=== PATIENT | female | born 1950 | race Caucasian/White ===

== ENCOUNTER → 2017-06-26 | Outpatient (CLI) | payer OTHER ==
[~2017-06-26] MED LIST: ANTIVERT25 MG PO; CEPHALEXIN 500500 M3 PO; DOXYCYCLINE 10100 MG PO; MEDROLDOSEPACK PO; NORCO 5-325 TA1 EACH PO; ZOFRAN ODT4 MG PO
[2017-06-26 11:21] LABS: ABSOLUTE EOSINOPHILS 0.2 thou/uL (0.0-0.7); ABSOLUTE LYMPHOCYTES 1.8 thou/uL (0.8-5.3); ABSOLUTE MONOCYTES 0.3 thou/uL (0.0-1.2); ABSOLUTE NEUTROPHILS 2.7 thou/uL (1.6-8.1); BASOPHILS 0.8 %; EOSINOPHILS 4.4 %; HEMATOCRIT 41.5 % (37.0-47.0); HEMOGLOBIN 14.1 gm/dL (12.0-15.0); LYMPHOCYTES 35.5 %; MCH 31.1 pg (26.0-34.0); MCHC 34.1 g/dL (28.0-37.0); MCV 91.5 fL (80.0-100.0); MONOCYTES 5.3 %; MPV 6.5 fl. (7.2-11.1); NUCLEATED RBCS 0 /100WBC; PLATELET COUNT* 229 thou/uL (150-400); RBC 4.54 mil/uL (4.20-5.00); RDW-CV 13.3 % (10.5-14.5); WBC 5.1 thou/uL (4.0-11.0)
[2017-06-26 11:35] LABS: ALBUMIN 3.8 g/dL (3.4-5.0); ALKALINE PHOSPHATASE 86 U/L (46-116); ANION GAP 8 mmol/L (7-16); BUN 14 mg/dL (7-18); CHLORIDE 101 mmol/L (98-107); CHOLESTEROL 212 mg/dL (<200); CO2 31 mmol/L (21-32); CREATININE 0.7 mg/dL (0.6-1.3); GLUCOSE 103 mg/dL (70-99); HDL CHOLESTEROL 49 mg/dL (>40); LDL CHOLESTEROL 137 mg/dL (<100); POTASSIUM 4.1 mmol/L (3.5-5.1); SGOT 21 U/L (15-37); SGPT 28 U/L (30-65); SODIUM 140 mmol/L (136-145); TC:HDL 4.3 Ratio (Not establshd); TOTAL BILIRUBIN 0.6 mg/dL (<0.1-1.0); TOTAL PROTEIN 7.6 g/dL (6.4-8.2); TRIGLYCERIDE 132 mg/dL (<150); VLDL 26 mg/dL (<40)
[2017-06-26 11:36] LABS: SERUM ASSESSMENT Clear
[2017-06-27 03:09] LABS: GLYCOHEMOGLOBIN (HGB A1C) 4.8 % (4.8-5.6)
== END ==
LOC: M.LAB 10:58
PROVIDERS: Family Medicine
DX: Z00.01 Encounter for general adult medical examination with abnormal findings (principal); E78.5 Hyperlipidemia, unspecified; R79.89 Other specified abnormal findings of blood chemistry

== ENCOUNTER → 2018-01-19 | Outpatient (CLI) | payer OTHER, MEDICARE | LOC: M.MRI 01-05 14:40 | DX: M25.511 Pain in right shoulder (principal); M25.411 Effusion, right shoulder; M19.011 Primary osteoarthritis, right shoulder; M75.51 Bursitis of right shoulder ==

== ENCOUNTER → 2018-02-01 | Outpatient (CLI) | payer OTHER, MEDICARE | LOC: M.LAB 15:35 | PROVIDERS: Nurse Practitioner Family | DX: M25.50 Pain in unspecified joint (principal); M79.601 Pain in right arm; R53.83 Other fatigue ==

== ENCOUNTER → 2018-07-09 | Outpatient (CLI) | payer OTHER, MEDICARE ==
[2018-07-09 12:29] LABS: ABSOLUTE EOSINOPHILS 0.2 thou/uL (0.0-0.7); ABSOLUTE LYMPHOCYTES 1.7 thou/uL (0.8-5.3); ABSOLUTE MONOCYTES 0.3 thou/uL (0.0-1.2); ABSOLUTE NEUTROPHILS 2.5 thou/uL (1.6-8.1); BASOPHILS 1.1 %; HEMATOCRIT 38.2 % (37.0-47.0); HEMOGLOBIN 13.2 gm/dL (12.0-15.0); LYMPHOCYTES 35.5 %; MCH 31.2 pg (26.0-34.0); MCHC 34.5 g/dL (28.0-37.0); MCV 90.7 fL (80.0-100.0); MPV 6.3 fl. (7.2-11.1); NUCLEATED RBCS 0 /100WBC; PLATELET COUNT* 213 thou/uL (150-400); POLYS 53.4 %; RBC 4.22 mil/uL (4.20-5.00); RDW-CV 13.2 % (10.5-14.5); WBC 4.7 thou/uL (4.0-11.0)
[2018-07-09 12:38] LABS: ALBUMIN 3.3 g/dL (3.4-5.0); ALKALINE PHOSPHATASE 65 U/L (46-116); ANION GAP 5 mmol/L (7-16); BUN 18 mg/dL (7-18); CALCIUM 8.2 mg/dL (8.5-10.1); CHLORIDE 103 mmol/L (98-107); CHOLESTEROL 214 mg/dL (<200); CO2 29 mmol/L (21-32); CREATININE 0.7 mg/dL (0.6-1.3); GLUCOSE 88 mg/dL (70-99); HDL CHOLESTEROL 51 mg/dL (>40); LDL CHOLESTEROL 132 mg/dL (<100); POTASSIUM 3.9 mmol/L (3.5-5.1); SGOT 18 U/L (15-37); SGPT 25 U/L (30-65); SODIUM 137 mmol/L (136-145); TC:HDL 4.2 Ratio (Not establshd); TOTAL BILIRUBIN 0.4 mg/dL (<0.1-1.0); TOTAL PROTEIN 6.6 g/dL (6.4-8.2); TRIGLYCERIDE 158 mg/dL (<150); VLDL 32 mg/dL (<40)
[2018-07-09 12:41] LABS: SERUM ASSESSMENT Clear
[2018-07-10 02:06] LABS: GLYCOHEMOGLOBIN (HGB A1C) 5.5 % (4.8-5.6)
== END ==
LOC: M.LAB 12:05
PROVIDERS: Nurse Practitioner Family
DX: Z12.31 Encounter for screening mammogram for malignant neoplasm of breast (principal); E78.2 Mixed hyperlipidemia; M85.89 Other specified disorders of bone density and structure, multiple sites; M19.011 Primary osteoarthritis, right shoulder; M19.012 Primary osteoarthritis, left shoulder; M25.712 Osteophyte, left shoulder; M25.711 Osteophyte, right shoulder; Z00.01 Encounter for general adult medical examination with abnormal findings

== ENCOUNTER → 2018-08-01 | Outpatient (CLI) | payer OTHER, MEDICARE | LOC: M.MRI 16:24 | DX: M75.102 Unspecified rotator cuff tear or rupture of left shoulder, not specified as traumatic (principal); M24.112 Other articular cartilage disorders, left shoulder; M19.012 Primary osteoarthritis, left shoulder ==

== ENCOUNTER 2018-12-20 08:12 | Emergency (ER) | payer OTHER, MEDICARE ==
[~2018-12-20] VITALS: Ht 149.9 cm; Wt 73.9 kg
[2018-12-20] MEDS ORDERED: CALCIUM + D SO1 EACH PO (08:24)
[2018-12-20] MEDS ORDERED: VITAMIN B-1100 M1 PO (08:24)
[2018-12-20] MEDS ORDERED: PERCOCET PO (08:25)
[2018-12-20] MEDS ORDERED: GENTAK5 ML INTRAOCULR (08:50)
[2018-12-20 09:01] VITALS: BP 148/74
== END 2018-12-20 09:01 | disposition home or self-care (01) ==
LOC: M.ERS 08:12
DX: Z77.098 Contact with and (suspected) exposure to other hazardous, chiefly nonmedicinal, chemicals (principal); Z98.890 Other specified postprocedural states; Z88.6 Allergy status to analgesic agent

== ENCOUNTER → 2019-04-03 | Outpatient (CLI) | payer OTHER, MEDICARE ==
[~2019-04-03] MED LIST changes: +CALCIUM + D SO1 EACH PO; +GENTAK5 ML INTRAOCULR; +PERCOCET PO; +VITAMIN B-1100 M1 PO
[2019-04-03 10:01] LABS: CHOLESTEROL 211 mg/dL (<200); HDL CHOLESTEROL 47 mg/dL (>40); LDL CHOLESTEROL 130 mg/dL (<100); TC:HDL 4.5 Ratio (Not establshd); TRIGLYCERIDE 174 mg/dL (<150); VLDL 35 mg/dL (<40)
[2019-04-03 10:02] LABS: SERUM ASSESSMENT Clear
== END ==
LOC: M.LAB 09:06
PROVIDERS: Nurse Practitioner Family
DX: E78.9 Disorder of lipoprotein metabolism, unspecified (principal)

== ENCOUNTER → 2019-04-10 | Outpatient (CLI) | payer OTHER, MEDICARE | LOC: M.MRI 16:56 | DX: M75.101 Unspecified rotator cuff tear or rupture of right shoulder, not specified as traumatic (principal); M19.011 Primary osteoarthritis, right shoulder; G89.29 Other chronic pain ==

== ENCOUNTER → 2019-07-12 | Outpatient (CLI) | payer OTHER, MEDICARE | LOC: M.MRI 15:25 | DX: S83.242A Other tear of medial meniscus, current injury, left knee, initial encounter (principal); S83.282A Other tear of lateral meniscus, current injury, left knee, initial encounter; M17.12 Unilateral primary osteoarthritis, left knee; M71.22 Synovial cyst of popliteal space [Baker], left knee; X58.XXXA Exposure to other specified factors, initial encounter; Y93.89 Activity, other specified; Y92.89 Other specified places as the place of occurrence of the external cause; Y99.8 Other external cause status ==

== ENCOUNTER → 2019-08-21 | Day surgery (SDC) | payer OTHER, MEDICARE ==
[~2019-08-21] MED LIST changes: +LIPITOR40 MG PO; +SERTRALINE HCL50 MG PO
--- NOTE | ~2019-08-21 | OP ---
[address] [address] OPERATIVE REPORT Name: ISMAEL ROSENTHAL Room: [facility]#: [id number] Admission: 08/21/19 Attend Phys: Keron Crabtree II Discharge: Date of : 52 Report #: [id number] THIS REPORT FOR: //name// cc: Gabriel Carrero Russell J. DO ~ THIS REPORT FOR: //name// CC: Keron Carrero DATE OF SERVICE: 08/21/2019 PREOPERATIVE DIAGNOSIS: Left knee medial meniscus tear. POSTOPERATIVE DIAGNOSES: 1. Left knee medial meniscus tear. 2. Grade 3 chondromalacia, patellofemoral groove. 3. Lateral meniscus tear. PROCEDURES PERFORMED: 1. Left knee arthroscopic surgery with partial medial and lateral meniscectomy. 2. Abrasion chondroplasty, patellofemoral groove down to bleeding bone. SURGEON: Keron Crabtree II, DO. CLIENT ENGAGEMENT SPECIALIST: CEZAR Chris. ANESTHESIA: Per operative record. ESTIMATED BLOOD LOSS: Minimal. ANTIBIOTICS: Per operative record. DRAINS: None. COMPLICATIONS: None. CONDITION OF THE PATIENT: Stable to recovery room. DESCRIPTION OF PROCEDURE: The patient was taken to the operative suite and placed supine on the operating table, given appropriate anesthesia. The patient's affected lower extremity was sterilely prepped and draped with a well-padded knee arthroscopic greenwood. Surgery begun by medial and lateral portal incisions. The arthroscope was advanced in the joint. There was found to be grade 3 chondromalacia patellofemoral groove. Utilizing a shaver, an abrasion chondroplasty was performed down to bleeding bone and then smoothed [place] [id number] OPERATIVE REPORT Name: ISMAEL ROSENTHAL Room: [facility]#: [id number] Admission: 08/21/19 Attend Phys: Keron Crabtree II Discharge: Date of : 52 Report #: [id number] using Coblation wand in appropriate fashion. The medial meniscus was shown to have a tear to the medial margin extending around to the posterior aspect. The shaver was utilized to perform partial meniscectomy and resection with baskets and shaver was performed to resect the torn flap along the medial meniscus and this was then smoothed utilizing Coblation wand. Lateral meniscus was probed and shown to have tear to the anterior and lateral margin extending around to the anterior aspect. This was debrided utilizing a shaver with partial lateral meniscectomy performed and baskets were utilized to resect the torn flap along the lateral meniscus. This was then smoothed using Coblation wand. ACL was torn and the stump was resected. PCL was intact. There was also noted to be a small cyst on the posterior aspect, which was debrided with the shaver. Final irrigation was performed of the knee, it was drained of arthroscopic fluid, closed with 4-0 nylon in simple fashion. Dermabond and sterile dressing applied. The patient transported to recovery room in stable condition. Counts were correct throughout the procedure. By: [id number] Crabtree II, DO /nt
[2019-08-21 08:57] LABS: HEMATOCRIT 38.3 % (37.0-47.0); HEMOGLOBIN 13.2 gm/dL (12.0-15.0); MCH 31.4 pg (26.0-34.0); MCHC 34.4 g/dL (28.0-37.0); MCV 91.2 fL (80.0-100.0); MPV 6.3 fl. (7.2-11.1); RBC 4.19 mil/uL (4.20-5.00); RDW-CV 14.2 % (10.5-14.5); WBC 4.6 thou/uL (4.0-11.0)
[2019-08-21 09:05] LABS: CALCIUM 8.5 mg/dL (8.5-10.1); CREATININE 0.6 mg/dL (0.6-1.3); POTASSIUM 3.8 mmol/L (3.5-5.1)
--- NOTE | 2019-08-21 17:31 | EKG ---
[place] [address] ELECTROCARDIOGRAM REPORT Name: ISMAEL ROSENTHAL Room: [facility]#: [id number] Admission: 08/21/19 Attend Phys: Keron Crabtree, Discharge: Date of : 52 Date of Service: 08/21/19825 Report #: [id number] THIS REPORT FOR: //name// [facility] Test Date: 2019-08-21 Test Time: 08:26:55 Pat Name: ISMAEL ROSENTHAL Department: Room: Gender: Occupational Therapy Assistant: : 1950 Requested By: Keron Crabtree Order Number: [id number] Gianni MD: Nathen Garcia Measurements Intervals [place] Rate: 65 P: 42 HI: 171 QRS: 22 QRSD: 81 T: 28 QT: 388 QTc: 404 Interpretive Statements Sinus rhythm No previous ECG available for comparison Electronically Signed On 08-21-2019 17:29:42 CDT by Nathen Garcia [email or web address] <ELECTRONICALLY SIGNED> By: Nathen Garcia MD, [facility] 08/21/19 1729 5 5 Nathen Garcia MD, FACC /EPI
== END | disposition home or self-care (01) ==
LOC: M.SUR 06:56
PROVIDERS: Orthopaedic Surgery
DX: S83.232A Complex tear of medial meniscus, current injury, left knee, initial encounter (principal); S83.282A Other tear of lateral meniscus, current injury, left knee, initial encounter; M94.262 Chondromalacia, left knee; M25.462 Effusion, left knee; M25.572 Pain in left ankle and joints of left foot; Z79.899 Other long term (current) drug therapy; Z98.890 Other specified postprocedural states; X58.XXXA Exposure to other specified factors, initial encounter; Y93.89 Activity, other specified; Y92.89 Other specified places as the place of occurrence of the external cause; Y99.8 Other external cause status